=== PATIENT | male | born 1955 | race Caucasian/White ===

== ENCOUNTER 2017-06-12 20:40 | Emergency (ER) | payer SELFPAY ==
[~2017-06-12] VITALS: Ht 180.3 cm; Wt 63.5 kg
[2017-06-12] MEDS ORDERED: IV NORMAL SALINE 1000ML BAG 1,000 ML IV SCH (20:53)
[2017-06-12 21:21] LABS: BASO # 0.1 x10^3/uL (0.0-0.2); BASO % 1 % (0-3); EOS % 3 % (0-3); HEMATOCRIT 41.4 % (39.0-53.0); HEMOGLOBIN 13.7 g/dL (13.0-17.5); LYMPH # 1.6 x10^3/uL (1.0-4.8); LYMPH % 25 % (24-48); MEAN CORPUSCULAR HEMOGLOBIN 29 pg (25-35); MEAN CORPUSCULAR HGB CONC 33 g/dL (31-37); MEAN CORPUSCULAR VOLUME 87 fL (79-100); MONO % 10 % (0-9); NEUT % 60 % (31-73); PLATELET COUNT 300 x10^3/uL (140-400); RED BLOOD COUNT 4.78 x10^6/uL (4.30-5.70); WHITE BLOOD COUNT 6.5 x10^3/uL (4.0-11.0)
[2017-06-12] MEDS ORDERED: ONDANSETRON PF 4 MG/2 ML VIAL. IV ONE (21:30)
[2017-06-12 21:33] LABS: CALCIUM 8.9 mg/dL (8.5-10.1); GFR 76.2; POTASSIUM 3.8 mmol/L (3.5-5.1)
[2017-06-12 21:39] LABS: ALBUMIN 3.5 g/dL (3.4-5.0); ALBUMIN/GLOBULIN RATIO 1.1 (1.0-1.7); TOTAL BILIRUBIN 0.3 mg/dL (0.2-1.0); TOTAL PROTEIN 6.6 g/dL (6.4-8.2)
[2017-06-12 22:29] VITALS: BP 185/84
--- NOTE | 2017-06-12 22:42 | PHYS DOC ---
Past Medical History Past Medical History: No Pertinent History Past Surgical History: No Surgical History Alcohol Use: None Drug Use: None Adult General Chief Complaint Chief Complaint: NEAR SYNCOPE HPI HPI 61-year-old male with a history of chronic tobacco abuse and multiple episodes of fainting after bending over previously, now presents emergency department after an episode of fainting after bending over. Patient states he was feeling well. He was cleaning his garage when he had a down to pick something up. Upon standing he got lightheaded and diaphoretic and he describes that he lost consciousness. He did not fall or hurt himself. No headache or stiff neck. No other complaints. He states this episode is typical for him he's never been told that he has vasovagal reactions. He denies a history of arrhythmia or cardiac disease. Currently asymptomatic. No chest pain or shortness of breath. No exertional symptoms. Review of Systems Review of Systems Constitutional: Denies fever or chills [] Eyes: Denies change in visual acuity, redness, or eye pain [] HENT: Denies nasal congestion or sore throat [] Respiratory: Denies cough or shortness of breath [] Cardiovascular: No additional information not addressed in HPI [] GI: Denies abdominal pain, nausea, vomiting, bloody stools or diarrhea [] : Denies dysuria or hematuria [] Musculoskeletal: Denies back pain or joint pain [] Integument: Denies rash or skin lesions [] Neurologic: Denies headache, focal weakness or sensory changes [] Endocrine: Denies polyuria or polydipsia [] All other systems were reviewed and found to be within normal limits, except as documented in this note. Current Medications Current Medications Current Medications Medications (Trade) Dose Ordered Sig/South Start Time Stop Time Status Last Admin Dose Admin Ibuprofen (Motrin) 800 mg 1X ONCE 06/12/17 22:45 06/12/17 22:46 DC 06/12/17 22:42 800 MG Ondansetron HCl (Zofran) 4 mg 1X ONCE 06/12/17 21:30 06/12/17 21:31 DC 06/12/17 21:29 4 MG Sodium Chloride 1,000 ml @ 999 mls/hr Q1H1M 06/12/17 20:53 06/12/17 22:56 DC 06/12/17 21:29 999 MLS/HR Allergies Allergies Allergies Coded Allergies Type Severity Reaction Last Updated Verified No Known Drug Allergies 03/15/15 No Physical Exam Physical Exam Well-appearing 7-year-old male no acute distress mildly dry mucous membranes. He has appearance of chronic smoker. Nonfocal neurologic exam. No tachycardia or arrhythmia. Benign exam Constitutional: Well developed, well nourished, no acute distress, non-toxic appearance. [] HENT: Normocephalic, atraumatic, bilateral external ears normal, oropharynx moist, no oral exudates, nose normal. [] Eyes: PERRLA, EOMI, conjunctiva normal, no discharge. [] Neck: Normal range of motion, no tenderness, supple, no stridor. [] Cardiovascular:Heart rate regular rhythm, no murmur [] Lungs & Thorax: Bilateral breath sounds clear to auscultation [] Abdomen: Bowel sounds normal, soft, no tenderness, no masses, no pulsatile masses. [] Skin: Warm, dry, no erythema, no rash. [] Back: No tenderness, no CVA tenderness. [] Extremities: No tenderness, no cyanosis, no clubbing, ROM intact, no edema. [] Neurologic: Alert and oriented X 3, normal motor function, normal sensory function, no focal deficits noted. [] Psychologic: Affect normal, judgement normal, mood normal. [] Current Patient Data Vital Signs Vital Signs Date Time Temp Pulse Resp B/P (MAP) Pulse Ox O2 Delivery O2 Flow Rate FiO2 06/12/17 22:29 84 40 06/12/17 21:59 100 06/12/17 20:45 98.0 208/98 (134) Room Air 98.0 Lab Values Laboratory Tests Test 06/12/17 21:13 06/12/17 22:32 White Blood Count 6.5 x10^3/uL (4.0-11.0) Red Blood Count 4.78 x10^6/uL (4.30-5.70) Hemoglobin 13.7 g/dL (13.0-17.5) Hematocrit 41.4 % (39.0-53.0) Mean Corpuscular Volume 87 fL (79-100) Mean Corpuscular Hemoglobin 29 pg (25-35) Mean Corpuscular Hemoglobin Concent 33 g/dL (31-37) Red Cell Distribution Width 13.0 % (11.5-14.5) Platelet Count 300 x10^3/uL (140-400) Neutrophils (%) (Auto) 60 % (31-73) Lymphocytes (%) (Auto) 25 % (24-48) Monocytes (%) (Auto) 10 % (0-9) H Eosinophils (%) (Auto) 3 % (0-3) Basophils (%) (Auto) 1 % (0-3) Neutrophils # (Auto) 3.9 x10^3uL (1.8-7.7) Lymphocytes # (Auto) 1.6 x10^3/uL (1.0-4.8) Monocytes # (Auto) 0.7 x10^3/uL (0.0-1.1) Eosinophils # (Auto) 0.2 x10^3/uL (0.0-0.7) Basophils # (Auto) 0.1 x10^3/uL (0.0-0.2) Sodium Level 142 mmol/L (136-145) Potassium Level 3.8 mmol/L (3.5-5.1) Chloride Level 104 mmol/L (98-107) Carbon Dioxide Level 33 mmol/L (21-32) H Anion Gap 5 (6-14) L Blood Urea Nitrogen 14 mg/dL (8-26) Creatinine 1.0 mg/dL (0.7-1.3) Estimated GFR (Cockcroft-Gault) 76.2 BUN/Creatinine Ratio 14 (6-20) Glucose Level 103 mg/dL (70-99) H Calcium Level 8.9 mg/dL (8.5-10.1) Total Bilirubin 0.3 mg/dL (0.2-1.0) Aspartate Amino Transferase (AST) 20 U/L (15-37) Alanine Aminotransferase (ALT) 47 U/L (16-63) Alkaline Phosphatase 71 U/L (46-116) Troponin I Quantitative < 0.017 ng/mL (0.000-0.055) Total Protein 6.6 g/dL (6.4-8.2) Albumin 3.5 g/dL (3.4-5.0) Albumin/Globulin Ratio 1.1 (1.0-1.7) Thyroid Stimulating Hormone (TSH) 3.338 uIU/mL (0.358-3.74) Urine Collection Type Unknown Urine Color Yellow Urine Clarity Clear Urine pH 6.0 Urine Specific [place] 1.015 Urine Protein Negative mg/dL (NEG-TRACE) Urine Glucose (UA) Negative mg/dL (NEG) Urine Ketones (Stick) Negative mg/dL (NEG) Urine Blood Negative (NEG) Urine Nitrite Negative (NEG) Urine Bilirubin Negative (NEG) Urine Urobilinogen Dipstick 1.0 mg/dL (0.2 mg/dL) Urine Leukocyte Esterase Negative (NEG) Urine RBC 0 /HPF (0-2) Urine WBC 0 /HPF (0-4) Urine Squamous Epithelial Cells None /LPF Urine Bacteria 0 /HPF (0-FEW) Urine Mucus Mod /LPF Laboratory Tests 06/12/17 21:13 Laboratory Tests 06/12/17 21:13 EKG EKG EKG with normal sinus rhythm at 59 normal axis anterior Q waves consistent with prior NH. No STEMI interpreted by me[] Radiology/Procedures Radiology/Procedures Chest x-ray chronic changes no acute disease interpreted by me[] Course & Med Decision Making Course & Med Decision Making Pertinent Labs and Imaging studies reviewed. (See chart for details) Signs and symptoms consistent with clearly identifiable episode of syncope with vasovagal trigger. This is consistent with patient's chronic history however he is not aware of the formal diagnosis. Full workup unremarkable. Patient remains asymptomatic. Discussed with him Q waves in the anterior distribution as EKG consistent with prior NH however patient has no knowledge of this. He's had no recent chest pain or shortness of breath. Patient were to follow up with his primary care doctor as well as a purchasing buyer for reevaluation and full workup. No further workup or treatment indicated at this time patient agrees with outpatient follow-up and strict return precautions given [] Dragon Disclaimer Dragon Disclaimer This electronic medical record was generated, in whole or in part, using a voice recognition dictation system. Departure Departure Impression: Primary Impression: Vasovagal syncope Additional Impressions: Tobacco abuse Tobacco abuse counseling Disposition: 01 HOME, SELF-CARE Condition: GOOD Referrals: NO PCP (PCP) Additional Instructions: By your description and your symptoms today it seems quite clear that you've been experiencing vasovagal episodes. As we discussed this is lightheadedness and nearly fainting or fainting as a result of your vagus nerve being stimulated. Your vagus nerve system can become stimulated via many different things. Among these are urinating, straining to move her bowels. Bending over and standing up or anything else that increases the pressure inside her abdomen. , Coughing, straining to lift something heavy vomiting. Rest and drink plenty of fluids. Stop smoking to optimize your long-term health. Your EKG indicates that you've had a heart attack at some point in the past. This may or may not have been associated with chest pain and as you mention you're not aware of this history. Follow up with her doctor at a medical clinic tomorrow for reevaluation and referral to a purchasing buyer for further workup. Return immediately for new severe worsening symptoms. Problem Qualifiers KIMANI GOMEZ MD Jun 12, 2017 22:42
[2017-06-12] MEDS ORDERED: IBUPROFEN 800 MG TABLET. PO ONE (22:45)
[2017-06-12 22:49] LABS: BILIRUBIN,URINE NEGATIVE (NEG); GLUCOSE,URINE NEGATIVE (NEG); NITRITE,URINE NEGATIVE (NEG); PROTEIN,URINE NEGATIVE (NEG-TRACE)
[2017-06-12 22:54] LABS: BACTERIA,URINE 0 /HPF (0-FEW); RBC,URINE 0 /HPF (0-2); WBC,URINE 0 /HPF (0-4)
--- NOTE | 2017-06-13 08:25 | RAD ---
AP PORTABLE CHEST Clinical Indication: Syncope today Comparison: None. Findings: The cardiomediastinal silhouette is normal. Lungs are clear. There is no pneumothorax. No pleural effusion is appreciated. There is no acute bone abnormality. Degenerative endplate spurring in the thoracic spine. IMPRESSION: No acute cardiopulmonary process.
--- NOTE | 2017-06-13 13:01 | EKG ---
[facility] [address] [place] [id number] Test Date: 2017-06-12 Test Time: 20:56:47 Pat Name: SAMANTHA GARCIA Department: Room: Gender: M [employer]: : 1955 Requested By: KIMANI GOMEZ Order Number: [id number] Reading MD: Willie Romo Measurements Intervals [place] Rate: 59 P: 64 [place]: 160 QRS: 54 QRSD: 70 T: 56 QT: 382 QTc: 382 Interpretive Statements SINUS RHYTHM QRS(T) CONTOUR ABNORMALITY CONSISTENT WITH POSSIBLE ANTEROSEPTAL INFARCT AGE UNDETERMINED ABNORMAL ECG RI6.01 No previous ECG available for comparison Electronically Signed On 06-15-2017 16:56:59 [employer] by Willie Romo
== END 2017-06-12 22:45 | disposition home or self-care (01) ==
LOC: ER 20:40
DX: R55 Syncope and collapse (principal); F17.200 Nicotine dependence, unspecified, uncomplicated
CPT/HCPCS: 36415; 71010; 80053; 81001; 84443; 84484; 85025; 93005; 96361; 96374; 99285; J2405; J7030